=== PATIENT | female | born 1950 | race Caucasian/White ===

== ENCOUNTER 2020-07-28 14:30 | Inpatient (IN) ==
[2020-07-28] MEDS ORDERED: SODIUM CHLORIDE 0.9% 500 ML IV STA (15:42)
[2020-07-28 16:41] LABS: Basophils % 0.2 % (0.0-0.8); Eosinophils # 0.3 10*3/uL (0.0-0.87); Eosinophils % 2.9 % (0.00-10.9); Hematocrit 43.5 VOL% (35.7-47.0); Hemoglobin 14.5 GM/DL (12.0-16.0); Immature Granulocytes % 0.6 %; Immature Granulocytes Absolute 0.05 #; Lymphocytes # 1.6 10*3/uL (1.4-4.0); Lymphocytes % 17.8 % (21.3-54.2); Mean Corpuscular HGB Conc 33.3 GM/DL (32-36); Mean Platelet Volume 10.6 FL (9.6-12.0); Monocytes % 10.6 % (1.7-12.7); Neutrophils % 67.9 % (38.7-73.9); Platelet Count 227 T/CUMM (130-400); Red Blood Count 4.63 MC/CUMM (3.8-5.5); White Blood Count 8.8 T/CUMM (4-12)
[2020-07-28 17:04] LABS: Albumin 2.8 G/DL (3.4-5.0); Bilirubin,Total 1.2 MG/DL (0.2-1.0); Calcium 8.3 MG/DL (8.5-10.1); Ferritin 401.9 ng/ml (8-252); Osmolality,Calculated 276.5 MOS/KG (273-304); Potassium 3.8 MMOL/L (3.5-5.1); Total Protein 6.1 G/DL (6.4-8.3)
[2020-07-28] MEDS ORDERED: DEXAMETHASONE 4 MG/1 ML VIAL IV STA (17:37)
[2020-07-28] MEDS ORDERED: cefTRIAXone 1,000 MG in SODIUM CHLORIDE 0.9% 100 ML IV STA (17:37)
[2020-07-28] MEDS ORDERED: cefTRIAXone 1,000 MG VIAL ONE (17:39)
[2020-07-28] MEDS ORDERED: NICOTINE 21 MG/24 HR PATCH TRANSDERM PRN (19:59)
[2020-07-28] MEDS ORDERED: DEXTROSE 50% 25 GM/50 ML VIAL IV PRN (19:59)
[2020-07-28] MEDS ORDERED: diphenhydrAMINE CAP 25 MG CAPSULE PO PRN (19:59)
[2020-07-28] MEDS ORDERED: guaiFENesin/DM ER 600-30 MG TABLET PO PRN (19:59)
[2020-07-28] MEDS ORDERED: hydrALAZINE 20 MG/1 ML VIAL IV PRN (19:59)
[2020-07-28] MEDS ORDERED: ONDANSETRON 4 MG/2 ML VIAL IV PRN (19:59)
[2020-07-28] MEDS ORDERED: GLUCAGON 1 MG VIAL IM PRN (19:59)
[2020-07-28] MEDS: DEXAMETHASONE 4 MG/1 ML VIAL IV SCH (22:15)
[2020-07-28] MEDS: ENOXAPARIN 40 MG/0.4 ML SYRINGE SUBCUT SCH (22:32)
[2020-07-28] MEDS: SODIUM CHLORIDE 0.9% 1,000 ML IV SCH (22:32)
[2020-07-29] MEDS: cefTRIAXone 1,000 MG in SYRINGE 1 EACH IV SCH (08:32)
[2020-07-29] MEDS: VENLAFAXINE XR 75 MG CAPSULE PO SCH (08:32)
[2020-07-29] MEDS: CHOLECALCIFEROL 1,000 UNIT TABLET PO SCH (08:33)
[2020-07-29] MEDS: POTASSIUM CHLORIDE 20 MEQ TABLET PO SCH ×2 (08:33)
[2020-07-29] MEDS: DEXAMETHASONE 4 MG/1 ML VIAL IV SCH ×2 (08:33→20:38)
[2020-07-29] MEDS: LEVOTHYROXINE 88 MCG TABLET PO SCH (08:33)
[2020-07-29] MEDS: SODIUM CHLORIDE 0.9% 1,000 ML IV SCH ×3 (08:35→20:13)
[2020-07-29] MEDS: BUDESONIDE/FORMOTEROL 80-4.5 INHALER 6.9 GM INH SCH ×2 (09:00→20:38)
[2020-07-29] MEDS: ROSUVASTATIN 20 MG TABLET PO SCH (20:38)
[2020-07-29] MEDS: ENOXAPARIN 40 MG/0.4 ML SYRINGE SUBCUT SCH (20:38)
[2020-07-30] MEDS: SODIUM CHLORIDE 0.9% 1,000 ML IV SCH ×3 (04:35→14:21)
[2020-07-30 05:43] LABS: Basophils % 0.1 % (0.0-0.8); Hematocrit 36.8 VOL% (35.7-47.0); Immature Granulocytes % 1.1 %; Lymphocytes # 1.1 10*3/uL (1.4-4.0); Lymphocytes % 11.3 % (21.3-54.2); Mean Corpuscular HGB Conc 33.7 GM/DL (32-36); Mean Corpuscular Volume 93.4 FL (87-102); Mean Platelet Volume 10.7 FL (9.6-12.0); Monocytes % 5.1 % (1.7-12.7); Neutrophils % 82.4 % (38.7-73.9); Platelet Count 270 T/CUMM (130-400); Red Blood Count 3.94 MC/CUMM (3.8-5.5); Red Cell Distribution Width 13.7 % (9.3-17.3); White Blood Count 9.4 T/CUMM (4-12)
[2020-07-30 05:56] LABS: Hemoglobin 12.4 GM/DL (12.0-16.0)
[2020-07-30 06:09] LABS: Anisocytosis Slight; Macrocytosis Slight; Platelet Estimate Normal
[2020-07-30 06:11] LABS: Calcium 7.9 MG/DL (8.5-10.1); Osmolality,Calculated 281.3 MOS/KG (273-304)
[2020-07-30] MEDS: LEVOTHYROXINE 88 MCG TABLET PO SCH (06:19)
[2020-07-30] MEDS: VENLAFAXINE XR 75 MG CAPSULE PO SCH (08:25)
[2020-07-30] MEDS: CHOLECALCIFEROL 1,000 UNIT TABLET PO SCH (08:25)
[2020-07-30] MEDS: BUDESONIDE/FORMOTEROL 80-4.5 INHALER 6.9 GM INH SCH ×2 (08:25→20:57)
[2020-07-30] MEDS: PANTOPRAZOLE 40 MG TABLET PO SCH (08:25)
[2020-07-30] MEDS: POTASSIUM CHLORIDE 20 MEQ TABLET PO SCH ×2 (08:25→08:43)
[2020-07-30] MEDS: DEXAMETHASONE 4 MG/1 ML VIAL IV SCH ×2 (08:41→20:57)
[2020-07-30] MEDS: cefTRIAXone 1,000 MG in SYRINGE 1 EACH IV SCH (08:42)
[2020-07-30] MEDS: ROSUVASTATIN 20 MG TABLET PO SCH (20:56)
[2020-07-30] MEDS: ENOXAPARIN 40 MG/0.4 ML SYRINGE SUBCUT SCH (20:57)
[2020-07-31] MEDS: SODIUM CHLORIDE 0.9% 1,000 ML IV SCH ×2 (04:09→08:42)
[2020-07-31] MEDS: LEVOTHYROXINE 88 MCG TABLET PO SCH (06:04)
[2020-07-31] MEDS: PANTOPRAZOLE 40 MG TABLET PO SCH (08:15)
[2020-07-31] MEDS: cefTRIAXone 1,000 MG in SYRINGE 1 EACH IV SCH (08:25)
[2020-07-31] MEDS: CHOLECALCIFEROL 1,000 UNIT TABLET PO SCH (08:25)
[2020-07-31] MEDS: DEXAMETHASONE 4 MG/1 ML VIAL IV SCH (08:25)
[2020-07-31] MEDS: BUDESONIDE/FORMOTEROL 80-4.5 INHALER 6.9 GM INH SCH (08:25)
[2020-07-31] MEDS: VENLAFAXINE XR 75 MG CAPSULE PO SCH (08:25)
[2020-07-31] MEDS: POTASSIUM CHLORIDE 20 MEQ TABLET PO SCH ×2 (08:25→08:40)
[2020-07-31 11:37] VITALS: BP 130/75
== END 2020-07-31 12:17 | disposition home or self-care (01) | DRG 177 ==
LOC: EDBD → EDUNIT# → N.EDINP 14:30 → N.ED 14:30 → SUATTDRO 19:59 → N.EDINP 21:26 → N.2E 21:44
PROVIDERS: ADMIT Internal Medicine; ATTEND Internal Medicine